=== PATIENT | female | born 1995 | race African-American/Black ===

== ENCOUNTER 2023-09-03 02:36 | Emergency (ER) | payer SELFPAY ==
[~2023-09-03] VITALS: Ht 154.9 cm; Wt 111.0 kg
[2023-09-03 02:47] VITALS: O2SAT 100
[2023-09-03] MEDS ORDERED: IBUP-2028 MT (03:44)
[2023-09-03] MEDS ORDERED: AMOX1TAB16 MT (03:44)
[2023-09-03] MEDS ORDERED: IBUPROFEN 400MG TABLET PO ONE (03:45)
[2023-09-03] MEDS ORDERED: AMOXICILLIN/POTASSIUM CLAVULANATE 875/125MG TAB PO ONE (03:45)
[2023-09-03 04:12] VITALS: BP 100/74; PULSE 63; RESP 20; TEMP 98.9
== END 2023-09-03 04:22 | disposition home or self-care (01) ==
LOC: ER 02:47
DX: K08.89 Other specified disorders of teeth and supporting structures (principal); Z90.89 Acquired absence of other organs
CPT/HCPCS: 81025; 99283